=== PATIENT | female | born 1955 | race Caucasian/White ===

== ENCOUNTER 2020-05-08 08:15 | Outpatient (CLI) | payer OTHER, SELFPAY ==
--- NOTE | 2020-05-08 08:20 | MM_ITS ---
WS: [id number] Bilateral screening digital mammogram, 05/08/2020 Clinical Data: SCREENING Comparison: 07/03/2018, 03/08/2013, 02/26/2013, 08/21/2008. Findings: The breast parenchymal pattern shows extreme density No spiculated masses or clustered calcifications are seen. There are no secondary signs of carcinoma. Mole markers are present on the right breast. MM/[place] [id number] Impression: 1. Negative bilateral mammogram unchanged. 2. Recommend annual screening mammograms. BIRADS: 1-Negative FOLLOW UP: 1 Year Follow-up The CAD tool or die drawing checker was used.
== END 2020-05-08 08:16 | disposition home or self-care (01) ==
LOC: RADSHAW 08:19
PROVIDERS: PCP Family Medicine; Visit Provider Family Medicine
DX: Z12.31 Encounter for screening mammogram for malignant neoplasm of breast (principal)
CPT/HCPCS: 77067

== ENCOUNTER 2020-07-23 14:02 | Outpatient (CLI) | payer OTHER, SELFPAY ==
--- NOTE | 2020-07-23 14:19 | XR_ITS ---
WS: [id number] Bone mineral density performed on a BuildZoom[employer], 07/23/2020 Clinical data: POST MENOPAUSAL Comparison study: DEXA scan, 07/03/2018. Findings: The first 4 lumbar vertebral bodies demonstrated the bone mineral density of 0.938 g/cm2 for a young adult T score of -2.0. Measurement of the left hip reveals a bone mineral density of 0.752 g/cm2 with a young adult T score of -2.0. Measurement of the right hip reveals the bone mineral density of 0.722 g/cm2 for young adult T score of -2.3. XR/XR DEXA axial skeleton* [id number] Impression: 1. The bone mineral density lumbar spine shows osteopenia, and the bone mineral density has decreased compared to the prior study. 2. The bone mineral density of the hips shows osteopenia, and the bone mineral density has decreased compared to the prior scan.
== END 2020-07-23 14:03 | disposition home or self-care (01) ==
LOC: RADWPI 14:06
PROVIDERS: PCP Family Medicine; Visit Provider Family Medicine
DX: Z78.0 Asymptomatic menopausal state (principal); M85.88 Other specified disorders of bone density and structure, other site
CPT/HCPCS: 77080

== ENCOUNTER 2020-10-22 17:51 | Emergency (ER) | payer OTHER, SELFPAY ==
[2020-10-22 18:07] VITALS: BP 152/88; PULSE 70; RESP 18; TEMP 36.8; O2SAT 99; BMI 18.4
--- NOTE | 2020-10-22 20:37 | W.ED.ABDPA2 ---
HPI - Abdominal Pain General: Chief Complaint: Abdominal Pain Stated Complaint: pain, discomfort in abdomen near ribs Time Seen by Provider: 10/22/20 20:37 History of Present Illness: HPI narrative: Patient is a 65-year-old female comes to the ED with an abdominal hernia. Patient's noticed the hernia approximately 3 to 4 weeks ago. 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 She says she was carrying some heavy buckets during that time and thinks that when hernia for started. She says that it gives her some mild pain when it protrudes out and if she presses on it it causes a little discomfort. She denies any fever, chills, nausea/vomiting, bladder or bowel symptoms. Hernia is located in the middle upper abdomen just above the umbilicus. She states that it protrudes out mostly when she is up and active and moving around. Associated Symptoms: Denies chills, constipation, diarrhea, dysuria, fever(s), hematochezia, hematuria, nausea and vomiting Review of Systems Const: Denies: fever(s), chills or fatigue Eyes: Denies: change in vision or eye discomfort ENMT: Denies: throat pain, odynophagia, nasal discharge or nasal congestion Card: Denies: chest pain, palpitations, edema, swelling of feet/ankles, dyspnea on exertion or orthopnea Resp: Denies: dyspnea, productive cough or non-productive cough GI: Reports: abdominal pain (Abdominal hernia in mid upper abdomen.); Denies: nausea, vomiting, diarrhea, constipation or hematochezia : Denies: flank pain, dysuria or hematuria Musc: Denies: neck pain, back pain or extremity swelling Skin/Breast: Denies: rash or new lesions Neuro: Denies: headache(s), numbness in extremities or weakness in extremities PFSH ED PFSH: Surgical History History of appendectomy Family History Father Cancer Mother Cancer Social History Smoking and tobacco status: never smoked Alcohol intake: current Alcohol intake frequency: few times a month Alcohol type: wine History of recent travel: No Physical Exam Narrative: EXAM NARRATIVE: Patient is a pleasant and healthy 65-year-old female that appears in no acute distress or pain. Const: COMMON NORMALS: no acute distress, patient oriented x3, healthy appearing and alert GENERAL APPEARANCE: cooperative and comfortable HENMT: COMMON NORMALS: normocephalic HEAD & SCALP: normocephalic MOUTH: Normal oral and palatal mucosa present THROAT: posterior oropharynx normal and uvula midline Neck/C-Spine: COMMON NORMALS: supple GENERAL: Yes normal visual inspection Resp: COMMON NORMALS: normal respiratory effort, No retractions, No use of accessory muscles and clear to auscultation bilaterally AUSCULTATION: clear to auscultation bilaterally Cardio: COMMON NORMALS: regular rate, regular rhythm, S1 normal heart sound present, S2 normal heart sound present, No gallops present (Cardio), No clicks present (Cardio), No murmurs present (Cardio) and Peripheral pulses 2+ throughout RATE: regular rate RHYTHM: regular rhythm HEART SOUNDS: S1 normal heart sound present and S2 normal heart sound present PERIPHERAL PULSES: Peripheral pulses 2+ throughout GI: COMMON NORMALS: Normal to inspection, nondistended, normoactive bowel sounds present, Soft to palpation, non-tender and no masses INSPECTION: Yes visible herniation PALPATION: Yes Soft to palpation and Yes Hernia present ventral (Small reducible hernia in the upper abdomen near midline.) : COMMON NORMALS: Yes no CVA tenderness BLADDER/KIDNEY EXAM: Yes no CVA tenderness Back/Pelvis: COMMON NORMALS: no CVA tenderness Extremity: COMMON NORMALS: normal to inspection Neuro: COMMON NORMALS: patient oriented x3 SENSORIUM/ORIENTATION: Yes alert GAIT: Yes Normal gait present Skin: GENERAL SKIN EXAM: dry skin Course Vital Signs: Vital signs: Vital Signs Temperature 98.2 F 10/22/20 23:42 Pulse Rate 72 10/22/20 23:42 Respiratory Rate 18 10/22/20 23:42 Blood Pressure 118/73 10/22/20 23:42 Pulse Oximetry 98 10/22/20 23:42 MDM - Abdominal Pain MDM Narrative: Medical decision making narrative: Patient is a 65-year-old female who comes to the ED with ventral abdominal hernia. 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 Exam shows a palpable ventral hernia that was easily reducible. Patient is in no acute distress or pain. Vitals are stable. All labs were unremarkable. CT of the abdomen did not identify any hernias but did state that patient has a couple liver hemangiomas. I told patient that I can place referral to general surgery for but she said she would prefer to see her PCP first and he can refer to general surgery as needed. Patient was diagnosed with a ventral hernia and hemangiomas of the liver. She was told to follow-up with her PCP in 7 to 10 days for reevaluation. Return to ED precautions given. Patient understood and agreed with plan. Lab Data: Attestation: I reviewed the patient's lab results. Labs: Lab Results 10/22/20 10/22/20 Range/Units 21:41 21:41 WBC 4.0 (4.0-10.0) 10^3/ uL RBC 4.27 (4.1-5.3) 10^6/u L Hgb 12.5 (11.5-15.3) g/dL Hct 38.1 (37.0-47.0) % MCV 89.2 (81-99) fL MCH 29.3 (28.0-34.0) pg MCHC 32.8 (30.0-36.0) g/dL RDW 12.8 (12.1-15.1) % Plt Count 199 (130-400) 10^3/c mm MPV 9.6 (7.4-10.4) fL Neut % (Auto) 52.0 % Lymph % (Auto) 36.4 % [place] % (Auto) 7.8 % Eos % (Auto) 2.5 % Baso % (Auto) 1.0 % Neut # (Auto) 2.07 (1.8-7.7) 10^3/u L Lymph # (Auto) 1.5 (0.8-4.8) 10^3/u L [place] # (Auto) 0.3 (0.2-0.9) 10^3/u L Eos # (Auto) 0.1 (0.0-0.8) 10^3/u L Baso # (Auto) 0.0 (0.0-0.1) 10^3/u L Nucleated RBC % (a uto) 0 % Nucleated RBCs # 0.0 /100WBC Sodium 138 (136-145) mmol/L Potassium 3.7 (3.5-5.1) mmol/L Chloride 101 (98-107) mmol/L Carbon Dioxide 26 (22-29) mmol/L Anion Gap 14.7 (5-19) BUN 16 (8-23) mg/dL Creatinine 0.7 (0.5-0.9) mg/dL GFR Calculation 84.2 L (90-130) mL/min Glucose 87 (65-115) mg/dL Calculated Osmolal ity 287 (285-295) mOsm/k g Calcium 9.0 (8.5-10.5) mg/dL Total Bilirubin 0.3 (0.15-1.2) mg/dL AST 22 (0-32) U/L ALT 15 (0-33) U/L Alkaline Phosphata se 77 (35-105) IU/L Total Protein 6.7 (6.6-8.7) g/dL Albumin 4.3 (3.5-5.2) g/dL Globulin 2.4 (1.3-4.6) g/dL Lipase 64 H (13-60) U/L Imaging Data ^: CT Abd/Pel: Attestation: I personally reviewed and interpreted this imaging study as follows: Radiologist's impression: [address] [address] [address] Scan Report Signed Patient: Shannen Mata Unit #: [id number] : 1955 Age/Sex: 65 / F ADM Date: 10/22/20 Loc: ER Room/Bed: Attending Dr: Ordering Provider/Ordering MD: Robert Nazario Date of Service: 10/22/20 Procedure(s): CT abdomen pelvis w con* [id number] Accession Number(s): [id number] Report Number: [id number] PROCEDURE INFORMATION: Exam: CT Abdomen And Pelvis With Contrast Exam date and time: 10/22/2020 9:07 PM Age: 65 years old Clinical indication: Other: Lump below rib cage; Prior surgery; Surgery type: Appy; Additional info: Ventral hernia TECHNIQUE: Imaging protocol: Computed tomography of the abdomen and pelvis with contrast. Radiation optimization: All CT scans at this facility use at least one of these dose optimization techniques: automated exposure control; mA and/or kV adjustment per patient size (includes targeted exams where dose is matched to clinical indication); or iterative reconstruction. Contrast material: OMNI 300; Contrast volume: 95 ml; Contrast route: INTRAVENOUS (IV); COMPARISON: No relevant prior studies available. RADIATION DOSE METRICS: Total DLP (mGy-cm): 859.41 FINDINGS: Lungs: Densely calcified circumscribed pulmonary nodule of the inferior left lower lobe just above the left diaphragm 9 mm diameter. Liver: No enlargement of the liver. Three separate distinct circumscribed low-attenuation masses in the right hepatic lobe. The largest lesion measures 2.8 cm x 2.6 cm. The smaller lesions measures 2.0 cm x 1.5 cm in the right lobe laterally and the 3rd mass measures 1.7 cm x 1.4 cm and is present in the hepatic dome abutting the anterior margin of the intrahepatic IVC.. Both lesions have faint patchy peripheral enhancement on this portal venous phase study. Gallbladder and bile ducts: Normal. No calcified stones. No ductal dilation. Pancreas: Normal. No ductal dilation. Spleen: Normal. No splenomegaly. Adrenal glands: Normal. No mass. Kidneys and ureters: Circumscribed partially exophytic left renal upper pole cortically based lesion is homogeneous in attenuation but hyperdense measuring 2 cm x 2 cm. No hydronephrosis. No renal stones. No perinephric inflammation. Stomach and bowel: Large fecal volume. No inflammatory changes of bowel. Negative for bowel obstruction. No evidence of bowel perforation. Appendix: No evidence of appendicitis. Intraperitoneal space: Unremarkable. No free air. No significant fluid collection. Vasculature: Unremarkable. No abdominal aortic aneurysm. Lymph nodes: Unremarkable. No enlarged lymph nodes. Urinary bladder: Unremarkable as visualized. Reproductive: Unremarkable as visualized. Bones/joints: Pelvic osseous structures are unremarkable. Included aspects of the lower ribs are intact and unremarkable. Lumbar spinal alignment is normal. No fracture. No suspicious lesion. Moderate severity L5-S1 disc disease. Soft tissues: Lumbar paraspinal muscles are symmetric and unremarkable. Ventral abdominal wall intact. No hernia seen. No soft tissue masses of the lower chest wall or the abdominal wall. CT/CT abdomen pelvis w con* [id number] IMPRESSION: 1. Negative for acute pathology in the abdomen or pelvis. 2. No soft tissue masses of the body wall or the peritoneal cavity. 3. Multiple liver masses; favor hemangiomas. COMMENTS: Consistent with the [employer]'s Incidental Findings Committee white paper (J Am Madi Radiol 2018): Any incidental renal lesion less than 1 cm or classified as too small to characterize, or any incidental cystic renal lesion characterized as simple-appearing, is likely benign. No follow-up imaging is recommended for these lesions per consensus recommendations based on imaging criteria. Radiation Dose CTDIVOL = (mGy): DLP = 859.41 (mGy-cm) Dictated By: Teofilo Crawford Signed By: Teofilo Crawford Signed Date/Time: 10/22/202244 DD/ 43 Discharge Plan Discharge Patient Disposition: Home Clinical Impression: Hemangioma of liver Ventral hernia Qualifiers: Obstruction and gangrene presence: without obstruction or gangrene Qualified Code(s): K43.9 - Ventral hernia without obstruction or gangrene Condition: Stable Prescriptions: No Action Vitamin D3 25 mcg (1,000 unit) Capsule 25 mcg PO DAILY RF: 0 Discharge Orders: Discharge ED (Routine); Ordered 10/22/20 Ordered By: Robert Nazario Referrals: Cezar Blum MD [Primary Care Provider] - Discharge Diet: Regular Discharge Activity: Increase activity as tolerated Patient Instructions: Abdominal Hernia, Ventral Hernia (ED) Activity Restrictions/Additional Instructions: Follow-up with medical provider as directed in 7 to 10 days for reevaluation. Return to the ER or your medical provider if condition worsens. Please read and understand discharge instructions. If any questions, please ask. Coding Level of Care Code ED Furnace Erector for Chg Fwd Exam Comprehensive
--- NOTE | 2020-10-22 20:58 | CTR_ITS ---
PROCEDURE INFORMATION: Exam: CT Abdomen And Pelvis With Contrast Exam date and time: 10/22/2020 9:07 PM Age: 65 years old Clinical indication: Other: Lump below rib cage; Prior surgery; Surgery type: Appy; Additional info: Ventral hernia TECHNIQUE: Imaging protocol: Computed tomography of the abdomen and pelvis with contrast. Radiation optimization: All CT scans at this facility use at least one of these dose optimization techniques: automated exposure control; mA and/or kV adjustment per patient size (includes targeted exams where dose is matched to clinical indication); or iterative reconstruction. Contrast material: OMNI 300; Contrast volume: 95 ml; Contrast route: INTRAVENOUS (IV); COMPARISON: No relevant prior studies available. RADIATION DOSE METRICS: Total DLP (mGy-cm): 859.41 FINDINGS: Lungs: Densely calcified circumscribed pulmonary nodule of the inferior left lower lobe just above the left diaphragm 9 mm diameter. Liver: No enlargement of the liver. Three separate distinct circumscribed low-attenuation masses in the right hepatic lobe. The largest lesion measures 2.8 cm x 2.6 cm. The smaller lesions measures 2.0 cm x 1.5 cm in the right lobe laterally and the 3rd mass measures 1.7 cm x 1.4 cm and is present in the hepatic dome abutting the anterior margin of the intrahepatic IVC.. Both lesions have faint patchy peripheral enhancement on this portal venous phase study. Gallbladder and bile ducts: Normal. No calcified stones. No ductal dilation. Pancreas: Normal. No ductal dilation. Spleen: Normal. No splenomegaly. Adrenal glands: Normal. No mass. Kidneys and ureters: Circumscribed partially exophytic left renal upper pole cortically based lesion is homogeneous in attenuation but hyperdense measuring 2 cm x 2 cm. No hydronephrosis. No renal stones. No perinephric inflammation. Stomach and bowel: Large fecal volume. No inflammatory changes of bowel. Negative for bowel obstruction. No evidence of bowel perforation. Appendix: No evidence of appendicitis. Intraperitoneal space: Unremarkable. No free air. No significant fluid collection. Vasculature: Unremarkable. No abdominal aortic aneurysm. Lymph nodes: Unremarkable. No enlarged lymph nodes. Urinary bladder: Unremarkable as visualized. Reproductive: Unremarkable as visualized. Bones/joints: Pelvic osseous structures are unremarkable. Included aspects of the lower ribs are intact and unremarkable. Lumbar spinal alignment is normal. No fracture. No suspicious lesion. Moderate severity L5-S1 disc disease. Soft tissues: Lumbar paraspinal muscles are symmetric and unremarkable. Ventral abdominal wall intact. No hernia seen. No soft tissue masses of the lower chest wall or the abdominal wall. CT/CT abdomen pelvis w con* [id number] IMPRESSION: 1. Negative for acute pathology in the abdomen or pelvis. 2. No soft tissue masses of the body wall or the peritoneal cavity. 3. Multiple liver masses; favor hemangiomas. COMMENTS: Consistent with the [employer]'s Incidental Findings Committee white paper (J Am Madi Radiol 2018): Any incidental renal lesion less than 1 cm or classified as too small to characterize, or any incidental cystic renal lesion characterized as simple-appearing, is likely benign. No follow-up imaging is recommended for these lesions per consensus recommendations based on imaging criteria. Radiation Dose CTDIVOL = (mGy): DLP = 859.41 (mGy-cm)
[2020-10-22 21:54] LABS: Eosinophils # 0.1 10^3/uL (0.0-0.8); Eosinophils % 2.5 %; Hematocrit 38.1 % (37.0-47.0); Hemoglobin 12.5 g/dL (11.5-15.3); Lymphocytes # 1.5 10^3/uL (0.8-4.8); Lymphocytes % 36.4 %; Mean Corpuscular HGB Conc 32.8 g/dL (30.0-36.0); Mean Corpuscular Hemoglobin 29.3 pg (28.0-34.0); Mean Corpuscular Volume 89.2 fL (81-99); Mean Platelet Volume 9.6 fL (7.4-10.4); Monocytes # 0.3 10^3/uL (0.2-0.9); Monocytes % 7.8 %; Neutrophils # 2.07 10^3/uL (1.8-7.7); Nucleated Red Blood Cells % 0 %; Platelet Count 199 10^3/cmm (130-400); Red Blood Count 4.27 10^6/uL (4.1-5.3); Red Cell Distribution Width 12.8 % (12.1-15.1)
[2020-10-22 22:11] LABS: Alanine Aminotransferase 15 U/L (0-33); Albumin Level 4.3 g/dL (3.5-5.2); Alkaline Phosphatase 77 IU/L (35-105); Anion Gap 14.7 (5-19); Aspartate Amino Transferase 22 U/L (0-32); Blood Urea Nitrogen 16 mg/dL (8-23); Carbon Dioxide 26 mmol/L (22-29); Chloride 101 mmol/L (98-107); Globulin 2.4 g/dL (1.3-4.6); Glomerular Filtration Rate 84.2 mL/min (90-130); Glucose 87 mg/dL (65-115); Lipase 64 U/L (13-60); Osmolality Calculated 287 mOsm/kg (285-295); Potassium 3.7 mmol/L (3.5-5.1); Sodium 138 mmol/L (136-145); Total Bilirubin 0.3 mg/dL (0.15-1.2); Total Protein 6.7 g/dL (6.6-8.7)
[2020-10-22] MEDS: iohexol 300 mg/mL 100 mL Btl IV (22:22)
[2020-10-22] MEDS: sodium chloride 0.9% 500 ML 999 ML IV (22:32)
[2020-10-22 23:42] VITALS: BP 118/73; PULSE 72; RESP 18; TEMP 36.8; O2SAT 98
== END 2020-10-22 23:46 | disposition home or self-care (01) ==
PROVIDERS: Emergency Medicine; Emergency Provider Physician Assistant; PCP Family Medicine
DX: D18.09 Hemangioma of other sites (principal); K43.9 Ventral hernia without obstruction or gangrene
CPT/HCPCS: 74177; 80053; 83690; 85025; 96360; 99283; J7040; Q9967

== ENCOUNTER → 2022-03-24 13:06 | Outpatient (BNVA) | payer MEDICARE, BC, SELFPAY | PROVIDERS: PCP Family Medicine; Visit Provider Nurse Practitioner Women's Health | DX: Z01.419 Encounter for gynecological examination (general) (routine) without abnormal findings (principal); R61 Generalized hyperhidrosis; N63.20 Unspecified lump in the left breast, unspecified quadrant; Z78.0 Asymptomatic menopausal state; M85.80 Other specified disorders of bone density and structure, unspecified site | CPT/HCPCS: 84439; 84443; 87624 ==

== ENCOUNTER 2022-04-08 15:08 | Outpatient (CLI) | payer MEDICARE, BC, SELFPAY ==
--- NOTE | 2022-04-08 15:13 | MM_ITS ---
WS: [id number] DIAGNOSTIC BILATERAL DIGITAL BREAST TOMOSYNTHESIS MAMMOGRAPHY WITH CAD LEFT breast ultrasound, limited HISTORY: N63.20 - Unspecified lump in the left breast, unspecified... COMPARISON: 05/08/2020 and 07/03/2018 TECHNIQUE: Bilateral craniocaudad, mediolateral oblique, and mediolateral views are submitted with to mosynthesis and SM. Spot compression LEFT CC. Computer aided detection utilized. Breast composition: The breasts are extremely dense, which lowers the sensitivity of mammography. Den se fibroglandular tissue. Palpable marker is placed in the upper outer quadrant of the LEFT breast. N o underlying mass identified. Very dense bilateral breast tissue. LEFT breast ultrasound, limited. Palpable area in the LEFT breast at 5:00, 2 cm from the nipple corresponds to a well-circumscribed cy st measuring 4 x 3 x 4 mm. There is an additional hypoechoic nodule at 2:00, 1 cm from the nipple charley suring 7 x 4 x 7 mm. Consistent with a fibroadenoma most likely. Well-circumscribed with no increased vascularity. MM/[place] [id number] IMPRESSION: BI-RADS: 4-Suspicious Finding-Biopsy Should Be Considered FOLLOW UP: Biopsy Recommended 1. Palpable area in the LEFT breast at 5:00 corresponds to a very small cyst. 2. Additional hypoechoic solid mass at 2:00 which is probably a fibroadenoma. As this is a solid mass recommend ultrasound-guided biopsy.
== END 2022-04-08 15:09 | disposition home or self-care (01) ==
LOC: RAD 15:09
PROVIDERS: PCP Family Medicine; Visit Provider Nurse Practitioner Women's Health
DX: N63.20 Unspecified lump in the left breast, unspecified quadrant (principal); N60.02 Solitary cyst of left breast
CPT/HCPCS: 76642; 77062

== ENCOUNTER → 2022-05-03 13:52 | Outpatient (BNVA) | payer MEDICARE, BC, SELFPAY | PROVIDERS: PCP Family Medicine; Visit Provider Thoracic Surgery (Cardiothoracic Vascular Surgery) | DX: I83.90 Asymptomatic varicose veins of unspecified lower extremity (principal) | CPT/HCPCS: 99202 ==

== ENCOUNTER 2022-05-12 08:19 | Outpatient (CLI) | payer MEDICARE, BC, SELFPAY ==
--- NOTE | 2022-05-12 | US_ITS ---
WS: [id number] ULTRASOUND-GUIDED LEFT BREAST BIOPSY x 2 HISTORY: LEFT breast masses. Masses are localized to 2:00 LEFT breast. COMPARISON: 04/08/2022, 05/08/2020 Procedure, risks and complications are explained to the patient. Medications are reviewed. Consent is obtained. Masses in the LEFT breast are localized with ultrasound. Skin is cleansed with ChloraPrep and anesthe tized with 1% buffered lidocaine. Small dermatomes are made. Under sterile conditions mass is biopsie d with a 14-gauge Achieve needle. Multiple core biopsies are performed of each mass. Material placed in formalin and sent to pathology for review. No complications encountered. #1. Mass at areola. #2. Mass at 2:00, 1 cm from the nipple. Breast tissue marker ([email or web address] ultrasound enhanced ribbon): Clips are placed within each mass. Patient left the radiology suite with no complications. Patient is instructed to return to [facility] or [facility] with any concerns. US/[place] [id number] IMPRESSION: 1. Uncomplicated core needle biopsy LEFT breast 2:00, areolar. 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 RECOMMENDATION: Return to annual screening mammography. 2. Uncomplicated core needle biopsy LEFT breast 2:00, 1 cm from the nipple. PATHOLOGY: Benign fibrocystic changes. No malignancy. RECOMMENDATION: Return to annual screening mammography.
--- NOTE | 2022-05-12 08:34 | US_ITS ---
WS: [id number] ULTRASOUND-GUIDED LEFT BREAST BIOPSY x 2 HISTORY: LEFT breast masses. Masses are localized to 2:00 LEFT breast. COMPARISON: 04/08/2022, 05/08/2020 Procedure, risks and complications are explained to the patient. Medications are reviewed. Consent is obtained. Masses in the LEFT breast are localized with ultrasound. Skin is cleansed with ChloraPrep and anesthe tized with 1% buffered lidocaine. Small dermatomes are made. Under sterile conditions mass is biopsie d with a 14-gauge Achieve needle. Multiple core biopsies are performed of each mass. Material placed in formalin and sent to pathology for review. No complications encountered. #1. Mass at areola. #2. Mass at 2:00, 1 cm from the nipple. Breast tissue marker ([employer] ultrasound enhanced ribbon): Clips are placed within each mass. Patient left the radiology suite with no complications. Patient is instructed to return to [facility] or [facility] with any concerns. US/[place] [id number] IMPRESSION: 1. Uncomplicated core needle biopsy LEFT breast 2:00, areolar. 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 RECOMMENDATION: Return to annual screening mammography. 2. Uncomplicated core needle biopsy LEFT breast 2:00, 1 cm from the nipple. PATHOLOGY: Benign fibrocystic changes. No malignancy. RECOMMENDATION: Return to annual screening mammography.
== END 2022-05-12 08:20 | disposition home or self-care (01) ==
LOC: RAD 08:22
PROVIDERS: PCP Family Medicine; Visit Provider Nurse Practitioner Women's Health
DX: R92.8 Other abnormal and inconclusive findings on diagnostic imaging of breast (principal); N63.21 Unspecified lump in the left breast, upper outer quadrant; D24.2 Benign neoplasm of left breast
CPT/HCPCS: 19083; 19084; 88305

== ENCOUNTER 2022-05-20 06:52 | Outpatient (CLI) | payer MEDICARE, BC, SELFPAY ==
--- NOTE | 2022-05-20 07:06 | USCV_ITS ---
Shannen Gabriel Age: 67 Gender: F : 1955 Exam Date: 05/20/2022 07:24 Ordering Phys: Constantino Gupta MD (Andy) ([email or web address]) Technologist: Johnson Aragon Exam Location: [facility] Indication: HISTORY: PROCEDURES: Bilateral duplex Venous Insufficiency study of the Deep and Superficial systems was carried out according to normal protocol with the patient in supine positon for deep system and dependent position for the superficial system. FINDINGS: All deep veins demonstrated compressibility without evidence of intraluminal thrombus or increased echogenicity. Spectral analysis of Doppler signals demonstrates normal response to compression maneuvers indicating patency without obstruction. Reflux determinations were made with the patient in the dependent position, the weight being on the contralateral leg. No notable reflux was seen at this time. The gsaphs on both sides are very small and almost disapear. There are lot of varicosies but i can not follow them to the gsaph or lesser saph. CONCLUSIONS 1. No evidence of DVT in the above-mentioned identifiable veins. 2. No significant venous reflux relative noted either in the deep or in the superficial veins bilaterally. 3. No greater saphenous veins were found to be of small caliber bilaterally 4. Varicose veins were noted bilaterally-could not identify the drainage. Dr Isi Crowley MD [facility] (Electronically Signed) Final Date: 24 May 2022 23:51 S
== END 2022-05-20 06:53 | disposition home or self-care (01) ==
LOC: RAD 06:52
PROVIDERS: PCP Family Medicine; Visit Provider Family Medicine
DX: R22.43 Localized swelling, mass and lump, lower limb, bilateral (principal); I83.90 Asymptomatic varicose veins of unspecified lower extremity
CPT/HCPCS: 93970

== ENCOUNTER 2022-08-23 13:04 | Outpatient (CLI) | payer MEDICARE, BC, SELFPAY ==
--- NOTE | 2022-08-23 13:12 | XR_ITS ---
WS: [id number] DEXA (DUAL ENERGY X-RAY ABSORPTIOMETRY) Bone mineral density was performed using a Beeline machine. HISTORY: POSTMENOPAUSAL COMPARISON: 07/23/2020 Lumbar spine BMD (L1-L4): 0.868 g/cm2 T score: -2.6 Z score: -0.9 Total hip BMD: Left: 0.713 g/cm2. T score: -2.3 Z score: -1.0 Right: 0.700 g/cm2. T score: -2.4 Z score: -1.1 10 year probability of a major osteoporotic fracture is 9.6%. Compared to the prior study from 07/23/2020. Lumbar spine bone mineral density has decreased by 7.4%. Bilateral hips bone mineral density has decreased by 4.2%. XR/XR DEXA axial skeleton* [id number] IMPRESSION: OSTEOPOROSIS based upon the WHO classification for females. Significant decrease in bone mineral density within the lumbar spine and hips s merry the prior study.
== END 2022-08-23 13:05 | disposition home or self-care (01) ==
LOC: RAD 13:07
PROVIDERS: PCP Family Medicine; Visit Provider Family Medicine
DX: Z78.0 Asymptomatic menopausal state (principal); M81.0 Age-related osteoporosis without current pathological fracture
CPT/HCPCS: 77080

== ENCOUNTER → 2023-04-05 14:00 | Outpatient (BNVA) | payer MEDICARE, BC, SELFPAY | PROVIDERS: PCP Family Medicine; Visit Provider Nurse Practitioner Women's Health | DX: R87.810 Cervical high risk human papillomavirus (HPV) DNA test positive (principal); R30.0 Dysuria | CPT/HCPCS: 87077; 87086; 87184; 87624 ==

== ENCOUNTER 2023-04-25 12:52 | Oncology outpatient (recurring) (ONCR) | payer MEDICARE, BC, SELFPAY ==
[2023-04-25] MEDS: denosumab 60 mg SDV SUBCUT (13:11)
[2023-04-25 13:16] VITALS: PULSE 65; TEMP 37.2; O2SAT 99
== END 2023-05-06 23:59 | disposition home or self-care (01) ==
LOC: ONCMED 12:55
PROVIDERS: PCP Family Medicine; Visit Provider Family Medicine
DX: M81.0 Age-related osteoporosis without current pathological fracture (principal)
CPT/HCPCS: 87086; 96372; J0897

== ENCOUNTER 2023-05-08 12:53 | Outpatient (CLI) | payer MEDICARE, BC, SELFPAY ==
--- NOTE | 2023-05-08 13:10 | MM_ITS ---
WS: [id number] BILATERAL 3D TOMOSYNTHESIS DIGITAL DIAGNOSTIC MAMMOGRAPHY WITH CAD CLINICAL INFORMATION: Z12.31 - Encounter for screening mammogram for malignant ... HISTORY: COMPARISON: 2021 TECHNIQUE: Bilateral CC, MLO, and ML views. FINDINGS: The breasts are composed of heterogeneous fibroglandular density, which can limit the detection of sm all underlying mass lesions. LEFT breast biopsy clips. A few incidental punctate calcifications. Stab le clustered calcifications RIGHT inferior breast. No suspicious focal mass, asymmetry, calcifications, or architectural distortion. No evidence of german gnancy. IMPRESSION: MM/[place] [id number] BI-RADS: 2-Benign FOLLOW UP: 1 Year Follow-up Recommend return to annual screening mammography.
== END 2023-05-08 12:54 | disposition home or self-care (01) ==
PROVIDERS: PCP Family Medicine; Visit Provider Nurse Practitioner Women's Health
DX: Z12.31 Encounter for screening mammogram for malignant neoplasm of breast (principal)
CPT/HCPCS: 77063; 77067

== ENCOUNTER → 2023-05-22 13:26 | Outpatient (BNVA) | payer MEDICARE, BC, SELFPAY | PROVIDERS: PCP Family Medicine; Visit Provider Nurse Practitioner Family | DX: L57.0 Actinic keratosis (principal); D18.01 Hemangioma of skin and subcutaneous tissue; L82.1 Other seborrheic keratosis; L81.4 Other melanin hyperpigmentation | CPT/HCPCS: 17000; 99213 ==

== ENCOUNTER → 2023-05-29 13:05 | Outpatient (BNVA) | payer MEDICARE, BC, SELFPAY | PROVIDERS: PCP Family Medicine; Visit Provider Obstetrics & Gynecology | DX: Z01.818 Encounter for other preprocedural examination (principal); R87.619 Unspecified abnormal cytological findings in specimens from cervix uteri | CPT/HCPCS: 81025; 88305 ==

== ENCOUNTER 2023-11-20 13:31 | Oncology outpatient (recurring) (ONCR) | payer MEDICARE, BC, SELFPAY ==
[2023-11-20] MEDS: denosumab 60 mg SDV SUBCUT (14:17)
[2023-11-20 14:19] VITALS: BP 122/68; PULSE 74; RESP 16; TEMP 36.4; O2SAT 99
== END 2023-12-05 23:59 | disposition home or self-care (01) ==
LOC: ONCMED 13:32
PROVIDERS: PCP Family Medicine; Visit Provider Family Medicine
DX: M85.80 Other specified disorders of bone density and structure, unspecified site (principal)
CPT/HCPCS: 96372; J0897

== ENCOUNTER → 2024-04-12 14:42 | Outpatient (BNVA) | payer MEDICARE, SELFPAY | PROVIDERS: PCP Family Medicine; Visit Provider Nurse Practitioner Women's Health | DX: R87.612 Low grade squamous intraepithelial lesion on cytologic smear of cervix (LGSIL) (principal) | CPT/HCPCS: 87624 ==

== ENCOUNTER → 2024-06-14 07:53 | Outpatient (BNVA) | payer MEDICARE, SELFPAY | PROVIDERS: PCP Family Medicine; Visit Provider Nurse Practitioner Family | DX: D48.5 Neoplasm of uncertain behavior of skin (principal); D18.01 Hemangioma of skin and subcutaneous tissue; L82.1 Other seborrheic keratosis; L81.4 Other melanin hyperpigmentation | CPT/HCPCS: 11102; 99213 ==

== ENCOUNTER 2024-11-22 12:00 | Outpatient (CLI) | payer MEDICARE, BC, SELFPAY ==
--- NOTE | 2024-11-22 12:06 | MM_ITS ---
WS: [id number] BILATERAL 3D TOMOSYNTHESIS DIGITAL SCREENING MAMMOGRAM WITH CAD CLINICAL INFORMATION: SCREENING HISTORY: Screening mammogram. No current complaints. COMPARISON: 2022 TECHNIQUE: Bilateral CC and MLO. FINDINGS: The breast are composed of extremely dense tissue, which can limit the detection of small underlying mass lesions. No suspicious focal mass, asymmetry, calcifications, or architectural distortion. No evidence of malignancy. Biopsy clip LEFT breast. A few incidental punctate calcifications. MM/MM [facility] tomosynthesis [id number] IMPRESSION: DENSITY: The breasts are heterogeneously dense, which may obscure small masses. BI-RADS: 2 - Benign FOLLOW UP: 1 Year Follow-up Recommend return to annual screening mammography.
== END 2024-11-22 12:01 | disposition home or self-care (01) ==
PROVIDERS: PCP Family Medicine; Visit Provider Family Medicine
DX: L57.8 Other skin changes due to chronic exposure to nonionizing radiation (principal); L81.4 Other melanin hyperpigmentation; D22.5 Melanocytic nevi of trunk; Z12.31 Encounter for screening mammogram for malignant neoplasm of breast; R92.343 Mammographic extreme density, bilateral breasts; R92.1 Mammographic calcification found on diagnostic imaging of breast
CPT/HCPCS: 77063; 77067; 99213

== ENCOUNTER → 2025-01-02 14:13 | Outpatient (BNVA) | payer MEDICARE, BC, SELFPAY | PROVIDERS: PCP Family Medicine; Visit Provider Nurse Practitioner Women's Health | DX: N95.8 Other specified menopausal and perimenopausal disorders (principal) | CPT/HCPCS: 84315; 87086 ==